=== PATIENT | female | born 1955 ===

== ENCOUNTER 2016-07-18 14:09 | Outpatient (CLI) ==
--- NOTE | 2016-07-20 07:31 | MAMMO ---
EXAM: Digital screening mammogram HISTORY: Screening mammogram COMPARISON: Diagnostic mammogram 04/08/2013 and screening mammogram 03/28/2013 FINDINGS: Bilateral CC and MLO views of the breasts were performed digitally and demonstrate fatty breast density (up to 25%). There is no abnormal nodule or calcification. There is no significant i nterval change. IMPRESSION: No new or suspicious nodule or calcification RECOMMENDATION: Annual screening mammogram BIRADS category 1: Negative
== END 2016-07-18 14:10 | disposition home or self-care (01) ==
LOC: RAD 14:09
PROVIDERS: ATTEND Nurse Practitioner
DX: Z12.31 Encounter for screening mammogram for malignant neoplasm of breast (principal)